=== PATIENT | male | born 1950 | race Caucasian/White ===

== ENCOUNTER 2018-06-16 13:42 | Day surgery (SDC) | payer MEDICARE, OTHER, SELFPAY ==
--- NOTE | 2018-06-16 | PATH_ITS ---
[facility] Accession Number: [id number] . 01 Material submitted: . RECTAL POLYP 10CM . 02 Diagnosis: Rectal Polyp at 10 cm: Tubular adenoma. MRV/06/19/2018 . 02 Electronically signed: . Pedro Foley MD, PhD, Pathologist NPI- [id number] . 01 Gross description: . Received in one formalin-filled container labeled with the patient's name and labeled rectal polyp 10 cm, are two 0.3-0.4 cm portions of tissue, entirely submitted in one cassette. ([id number]) /FRR . 02 Pathologist provided ICD-10: D12.8 . 02 CPT . 911732 Performed at: 01 [facility] [address] [id number] MD Raffy Merchant MD Phone: [phone] Performed at: 02 [facility] [address] [place], [place] [id number] MD Dorothy West MD Phone: [phone]
[2018-06-16 14:05] VITALS: BP 132/77; PULSE 61; RESP 16; TEMP 36.9; O2SAT 100; BMI 23.8
[2018-06-16] MEDS: SODIUM CHLORIDE 0.9% 1,000 ML 200 ML IV (14:16)
[2018-06-16] MEDS: MIDAZOLAM 5 MG/5 ML VIAL IV (14:55)
[2018-06-16] MEDS: fentaNYL 250 MCG/5 ML INJ IV (14:56)
[2018-06-16 15:06] VITALS: BP 114/73; PULSE 42; RESP 24; TEMP 36.2; O2SAT 98
[2018-06-16 15:11] VITALS: BP 109/70; PULSE 43; RESP 23; O2SAT 96
[2018-06-16 15:17] VITALS: BP 117/72; PULSE 57; RESP 13; O2SAT 98
--- NOTE | 2018-06-16 15:26 | SUR.PHASEII ---
Pt tolerating po intake. Spouse notified patient's procedure complete.
[2018-06-16 15:31] VITALS: BP 124/71; PULSE 54; RESP 16; TEMP 36.4; O2SAT 100
--- NOTE | 2018-06-17 07:55 | HP_ITS ---
DATE OF SERVICE: June 16, 2018. HISTORY OF PRESENT ILLNESS: The patient is coming in for a screening colonoscopy. He had a history of polyps 10 years ago and had a repeat scope 5 years ago with no polyps, and he is asymptomatic. No melena. No hematochezia. He is coming in for another colonoscopy. Denies diabetes, heart disease, or hypertension. ALLERGIES: NO KNOWN MEDICAL ALLERGIES. MEDICATIONS: He takes occasional ibuprofen at home. No other medications. REVIEW OF SYSTEMS: Negative for chest pain, unusual shortness of breath. GI is negative, except for the HPI mentioning a history of polyps. is negative. Neurologic: No strokes or seizures. PHYSICAL EXAMINATION VITAL SIGNS: Blood pressure is 120/75, heart rate in the 70s. HEENT: Normal NECK: No adenopathy. LUNGS: Clear. HEART: Regular rhythm. No murmur. ABDOMEN: Soft. No organomegaly. No tenderness. RECTAL: The rectal exam will be done at the time of the colonoscopy. DIAGNOSIS: History of polyps, here for a screening colonoscopy. Gerard Robles - /yunior/ts doc#: [id number]/job#: [id number] dd: 06/16/2018 14:15:00 dt: 06/17/2018 07:46:00 DICTATING /COPIES TO: Anselmo Morgan MD COPIES CHENTEE: MICHELINE
--- NOTE | 2018-06-17 08:31 | OP_ITS ---
DATE OF SERVICE: 06/16/2018 PREOP DIAGNOSIS: History of colonic polyps. POSTOP DIAGNOSIS: A 5-mm rectal polyp at 10 cm from the anal verge. OPERATIONS: 1. Total colonoscopy to the cecum. 2. Removal of a rectal polyp with the cold biopsy forceps. SURGEON: Anselmo Morgan MD DESCRIPTION OF PROCEDURE: The patient was properly identified during surgical pause, given conscious sedation with Versed and fentanyl, a total of 5 of Versed and, I believe, 200 of fentanyl. Flexible fiberoptic colonoscope was inserted transanally to the cecum. The patient had a 5-mm polyp approximately 10 cm from the anal verge. This was removed on extraction of the scope. I examined the entire colon throughout to the cecum, found no evidence of any tumor, polyp, or ulceration anywhere else in the colon. I removed the rectal polyp with the cold forceps, sent tissue for histology. I am sure this is a benign polyp or possibly even a hyperplastic polyp. The procedure was very well tolerated. Gerard Robles - /yunior/damien doc#: [id number]/job#: [id number] dd: 06/16/2018 15:06:00 dt: 06/17/2018 08:24:00 DICTATING MD/COPIES TO: Anselmo Morgan MD COPIES MNE: MICHELINE
== END 2018-06-16 15:37 | disposition home or self-care (01) ==
PROVIDERS: PCP Internal Medicine; Visit Provider Surgery
PROC: 0DJD8ZZ Inspection of Lower Intestinal Tract, Via Natural or Artificial Opening Endoscopic (ICD-10-PCS; CPT 45378; principal; 2018-06-16 14:45)
DX: Z86.010 Personal history of colon polyps (principal); D12.8 Benign neoplasm of rectum
CPT/HCPCS: 45380; 88305; J2250; J3010

== ENCOUNTER → 2019-09-07 10:02 | Outpatient (CLI) | payer MEDICARE, OTHER, SELFPAY ==
[2019-09-07 11:49] LABS: BUN Creatinine Ratio 23.8 (6-22); Blood Urea Nitrogen 19 mg/dL (9-20); Calcium 9.9 mg/dL (8.4-10.2); Carbon Dioxide 29 mmol/L (22-32); Chloride 100 mmol/L (98-107); Cholesterol 223 mg/dL (140-199); Estimated Glomerular Filt Rate > 60.0 mL/min (>60); Glucose 94 mg/dL (80-110); HDL Cholesterol 68 mg/dL (40-60); HEMOLYSIS < 15 (0-50); LDL Cholesterol Calculated 138 mg/dL (<100); Sodium 137 mmol/L (137-145); Triglycerides 86 mg/dL (35-150)
[2019-09-07 11:50] LABS: Potassium 5.4 mmol/L (3.4-5.1)
[2019-09-07 14:05] LABS: Prostate Specific Antigen Scrn 1.02 ng/mL (0.1-4.0)
== END ==
PROVIDERS: PCP Internal Medicine; Referring Provider Internal Medicine; Visit Provider Internal Medicine
DX: Z00.00 Encounter for general adult medical examination without abnormal findings (principal); N40.1 Benign prostatic hyperplasia with lower urinary tract symptoms; M15.0 Primary generalized (osteo)arthritis; S89.92XA Unspecified injury of left lower leg, initial encounter; Z12.5 Encounter for screening for malignant neoplasm of prostate
CPT/HCPCS: 36415; 80048; 80061; G0103

== ENCOUNTER → 2020-11-24 09:52 | Outpatient (CLI) | payer MEDICARE, OTHER, SELFPAY ==
[2020-11-24 11:09] LABS: Alanine Aminotransferase 29 IU/L (<50); Albumin 4.1 g/dL (3.5-5.0); Albumin Globulin Ratio 1.4 (1.0-2.8); Alkaline Phosphatase 43 U/L (38-126); Aspartate Aminotransferase 41 IU/L (17-59); Bilirubin Total 0.2 mg/dL (0.2-1.3); Blood Urea Nitrogen 15 mg/dL (9-20); Calcium 9.5 mg/dL (8.4-10.2); Carbon Dioxide 31 mmol/L (22-32); Chloride 102 mmol/L (98-107); Cholesterol 202 mg/dL (140-199); Estimated Glomerular Filt Rate > 60.0 mL/min (>60); Globulin 2.9 g/dL (1.7-4.1); Glucose 94 mg/dL (80-110); HDL Cholesterol 75 mg/dL (40-60); HEMOLYSIS < 15 (0-50); LDL Cholesterol Calculated 113 mg/dL (<100); Potassium 4.3 mmol/L (3.4-5.1); Sodium 137 mmol/L (137-145); Triglycerides 68 mg/dL (35-150)
[2020-11-24 11:34] LABS: Prostate Specific Antigen Scrn 1.03 ng/mL (0.1-4.0)
== END ==
PROVIDERS: PCP Internal Medicine; Referring Provider Internal Medicine; Visit Provider Internal Medicine
DX: N40.1 Benign prostatic hyperplasia with lower urinary tract symptoms (principal); Z12.5 Encounter for screening for malignant neoplasm of prostate; M15.0 Primary generalized (osteo)arthritis
CPT/HCPCS: 36415; 80053; 80061; G0103

== ENCOUNTER → 2021-09-18 13:13 | Outpatient (CLI) | payer MEDICARE, OTHER, SELFPAY ==
--- NOTE | 2021-09-18 | DI.MRI.S_ITS ---
PROCEDURE: MR SHOULDER LT WO CON INDICATIONS: Pain in left shoulder TECHNIQUE: Noncontrast oblique coronal T2 fast spin echo with fat saturation, oblique sagittal T1 spin echo and T2 fast spin echo with fat saturation, axial T1 spin echo and T2 fast spin echo with fat saturation through the shoulder. COMPARISON: None. FINDINGS: Image quality: Excellent. Rotator cuff: Moderate supraspinatus and infraspinatus tendinopathy with full-thickness tears and retraction of the tendons by approximately 4.5 cm. Mild tendinopathy of the subscapularis tendon. Atrophy of the supraspinatus and infraspinatus muscle. Bones and bursae: Flattening of the humeral head with adjacent T2 hyperintense signal, most consistent with a Hill-Sachs deformity with contusion. Moderate acromioclavicular joint degeneration with T2 hyperintense signal within the articulation. No os acromiale. Subacromial-subdeltoid bursal versus joint fluid is present. Moderate glenohumeral joint fluid. Capsule and soft tissues: The labrum is intact. The long head of the biceps tendon demonstrates normal location. Fluid surrounds the biceps tendon, which may be secondary to the aforementioned rotator cuff tear versus tenosynovitis. The coracohumeral ligament is normal in thickness. IMPRESSION: 1. Moderate supraspinatus and infraspinatus tendinopathy with full-thickness tears and retraction of the tendons. 2. Atrophy of the supraspinatus and infraspinatus muscle. 3. Mild subscapularis tendinopathy. 4. Subacromial-subdeltoid bursal fluid versus joint fluid. 5. Hill-Sachs deformity with adjacent contusion. 6. Moderate glenohumeral joint fluid. 7. At least moderate degeneration of the AC joint. Dictated by: Ryan Balderas M.D. on 09/18/2021 at 15:03 Approved by: Ryan Balderas M.D. on 09/18/2021 at 15:10
== END ==
PROVIDERS: PCP Internal Medicine; Referring Provider Orthopaedic Surgery; Visit Provider Orthopaedic Surgery
DX: M75.122 Complete rotator cuff tear or rupture of left shoulder, not specified as traumatic (principal); M19.012 Primary osteoarthritis, left shoulder; M62.512 Muscle wasting and atrophy, not elsewhere classified, left shoulder; M25.512 Pain in left shoulder
CPT/HCPCS: 73221

== ENCOUNTER → 2022-08-16 15:03 | Outpatient (CLI) | payer MEDICARE, OTHER, SELFPAY ==
--- NOTE | 2022-08-16 | DI.RAD.S_ITS ---
PROCEDURE: XR LUMBAR SPINE 2-3V INDICATIONS: LOW BACK PAIN WITHOUT SCIATICA, UNSPC TECHNIQUE: 3 views of the lumbar spine were acquired. COMPARISON: None. FINDINGS: Bones: 5 rwy-zul-ahyusjh vertebrae are present. There is normal bony alignment. No vertebral body compression fractures. No suspicious bony lesions. Moderate degenerative disc disease at L2-L3 and L3-L4, mild degenerative disc disease at L1-L2 and L4-L5. Moderate facet arthropathy throughout the lumbar spine, most pronounced at L3-L4, L4-L5 and L5-S1. Soft tissues: Overlying bowel gas pattern is normal. No suspicious soft tissue calcifications. IMPRESSION: Moderate degenerative disc and facet disease in lumbar spine. Dictated by: Sonia Velasquez M.D. on 08/16/2022 at 18:59 Approved by: Sonia Velasquez M.D. on 08/16/2022 at 19:00
== END ==
PROVIDERS: PCP Internal Medicine; Referring Provider Physician Assistant; Visit Provider Physician Assistant
DX: M54.50 Low back pain, unspecified (principal); M51.36 Other intervertebral disc degeneration, lumbar region; M47.816 Spondylosis without myelopathy or radiculopathy, lumbar region
CPT/HCPCS: 72100

== ENCOUNTER → 2022-12-16 11:45 | Outpatient (CLI) | payer MEDICARE, OTHER, SELFPAY ==
--- NOTE | 2022-12-16 11:46 | DI.RAD.S_ITS ---
PROCEDURE: XR SHOULDER RT MIN 2V INDICATIONS: right shoulder pain TECHNIQUE: 3 views of the shoulder were acquired. COMPARISON: None. FINDINGS: Bones: No fractures or dislocations. No suspicious bony lesions. Visualized ribs appear intact. Soft tissues: No suspicious soft tissue calcifications. IMPRESSION: Right shoulder radiographs Approved by: Doug Serna M.D. on 12/16/2022 at 17:29
== END ==
PROVIDERS: PCP Family Medicine; Referring Provider Family Medicine; Visit Provider Family Medicine
DX: M25.511 Pain in right shoulder (principal)
CPT/HCPCS: 73030

== ENCOUNTER 2023-04-21 08:29 | Day surgery (SDC) | payer MEDICARE, OTHER, SELFPAY ==
--- NOTE | 2023-04-21 | PATH_ITS ---
[facility] Accession Number: [id number] No. of containers..01 Tissue . 01 Material submitted: . colon - DESCENDING POLYP . 01 Diagnosis: Descending Polyp: Hyperplastic polyp. TXN 04/27/2023 1126 Local . 01 Electronically signed: . Steffany Russell MD, Pathologist NPI- [id number] . 01 Gross description: . DESCENDING POLYP: Received in formalin is 1 fragment(s) of lee, soft tissue measuring 1.0 x 0.6 x 0.2 cm submitted entirely in 1 cassette(s) /AAY 04/22/2023 2258 Local . 01 Pathologist provided ICD-10: K63.5 . 01 CPT . 198228 Specimen Comment: A courtesy copy of this report has been sent to [phone] Performed at: 01 [facility] [address] [place] [id number] MD Raffy Merchant MD Phone: [phone]
[2023-04-21] MEDS: LACTATED RINGERS 1,000 ML 150 ML IV (08:53)
[2023-04-21 09:02] VITALS: BP 136/78; PULSE 54; RESP 16; TEMP 36.4; O2SAT 99; BMI 23.0
--- NOTE | 2023-04-21 09:26 | P.HP_ITS ---
History of Present Illness History of Present Illness Date Patient Seen: 04/21/23 Time Patient Seen: 09:26 Chief complaint: SD Narrative: Gerard is a 73-year-old man who had a colonoscopy by Dr. Morgan in 2018 with removal of a tubular adenoma. He believes he has always had least one polyp removed with all of his prior colonoscopies. He also has a family history of colon in a brother and a father. [facility] Medical History Borderline hyperlipidemia BPH w/o urinary obs/LUTS Family history of colon cancer History of closed shoulder dislocation History of colon polyps History of herniated intervertebral disc Medicare annual wellness visit, subsequent Old lateral collateral ligament disruption Right shoulder pain Well adult on routine health check Surgical History History of repair of right rotator cuff Social History household members: spouse Smoking Status: Never smoker alcohol intake: current Meds Home Medications and Allergies Home Medications Medication Instructions Recorded Confirmed Type artificial tears ointment See Protocol ophthalmic (eye) 3XD 04/21/23 04/21/23 History fluocinonide-emollient 0.05 % 1 applic topical BID-QID PRN 04/21/23 04/21/23 History topical cream Itching peg 400-propylene glycol (PF) 0.4 See Protocol ophthalmic (eye) DAILY 04/21/23 04/21/23 History %-0.3 % eye drops in a dropperette (Systane (PF)) Allergies Allergy/AdvReac Type Severity Reaction Status Date / Time No Known Drug Allergies Allergy Verified 04/21/23 08:52 Exam Vital Signs (past 8 hours): - 04/21/23 09:02 Temperature 97.5 F L Pulse Rate 54 L Respiratory Rate 16 Blood Pressure 136/78 Pulse Oximetry 99 Oxygen Delivery Method Room Air Oxygen Delivery Method Room Air Const General: healthy appearing Resp Effort & Inspection: normal respiratory effort Assessment & Plan Assessment and plan (1) History of colon polyps: Status: Acute Plan Gerard is a 73 year old man with a personal history of colon polyps and a family history of colon cancer. We reviewed the risks and benefits of colonoscopy and he would like to proceed.
--- NOTE | 2023-04-21 10:30 | PM.OP.COLON ---
Operative Date/Time/Diagnoses Date of procedure: 04/21/23 Time of procedure: 10:30 Pre-op diagnosis: Personal history of colon polyps Post-op diagnosis: same Procedure & Clinicians Study performed: Colonoscopy Same procedure as scheduled: Yes Surgeon: Javier العراقي Procedure Notes Procedure in detail: Surgeon: Javier العراقي MD Anesthesia: Rainer Duron DO Procedure: The patient was brought to the endoscopy suite, placed in left lateral decubitus position. The patient was connected to monitoring devices. A time-out was performed. Sedation was administered. Once the patient was adequately sedated, a digital rectal exam was performed and was normal. The scope was then inserted and advanced to the cecum where the appendiceal orifice was identified and photographed. The scope was then slowly withdrawn over greater than 6 minutes. The mucosa was thoroughly inspected. There was a 4 mm polyp in the proximal descending colon removed with a cold snare. The scope was retroflexed in the rectum. No further abnormalities were seen The scope was straightened and removed. The patient was awakened and brought to recovery. Scope withdrawal time: 10 minutes Sedation time: 20 minutes EBL: 2 mL Findings: Small polyp in the descending colon Post-procedure Disposition: PACU
[2023-04-21 10:33] VITALS: BP 104/53; PULSE 56; RESP 11; TEMP 36.9; O2SAT 100
[2023-04-21 10:37] VITALS: BP 106/60; PULSE 53; RESP 15; O2SAT 96
[2023-04-21 10:43] VITALS: BP 111/61; PULSE 53; RESP 16; O2SAT 100
[2023-04-21 10:52] VITALS: BP 118/64; PULSE 50; RESP 14; TEMP 36.7; O2SAT 98
== END 2023-04-21 10:57 | disposition home or self-care (01) ==
PROVIDERS: PCP Family Medicine; Referring Provider Surgery; Visit Provider Surgery
PROC: 0DJD8ZZ Inspection of Lower Intestinal Tract, Via Natural or Artificial Opening Endoscopic (ICD-10-PCS; CPT 45378; principal; 2023-04-21 09:45)
DX: Z12.11 Encounter for screening for malignant neoplasm of colon (principal); Z86.010 Personal history of colon polyps; K63.5 Polyp of colon
CPT/HCPCS: 45385; J2704

== ENCOUNTER → 2023-08-22 08:51 | Outpatient (CLI) | payer MEDICARE, OTHER, SELFPAY ==
[2023-08-22 09:56] LABS: Add Manual Diff / Slide Review NO; Basophils Absolute Auto 0 /uL (0-100); Basophils Percent Auto 0.6 % (0-2); Eosinophils Absolute Auto 200 /uL (0-450); Eosinophils Percent Auto 3.9 % (2-4); Hematocrit 38.4 % (41-53); Hemoglobin 13.2 g/dL (13.5-17.5); Lymphocytes Absolute Auto 2100 /uL (1100-4500); Lymphocytes Percent Auto 39.9 % (25-40); Mean Corpuscular HGB Conc 34.3 % (30-36); Mean Corpuscular Volume 90.6 fL (80-100); Monocytes Absolute Auto 500 /uL (0-900); Monocytes Percent Auto 10.4 % (3-14); Neutrophils Absolute Auto 2300 /uL (1500-7000); Neutrophils Percent Auto 45.2 % (50-75); Platelet Count 207 X10^3/uL (150-400); Red Blood Cell Count 4.24 X10^6/uL (4.5-5.9); Red Cell Distribution Width 12.8 % (11.6-14.8); White Blood Cell Count 5.2 X10^3/uL (4.5-11.0)
[2023-08-22 10:11] LABS: Alanine Aminotransferase 37 IU/L (<50); Albumin 3.9 g/dL (3.5-5.0); Albumin Globulin Ratio 1.4 (1.0-2.8); Alkaline Phosphatase 40 U/L (38-126); Aspartate Aminotransferase 38 IU/L (17-59); BUN Creatinine Ratio 18.4 (6-22); Bilirubin Total 0.5 mg/dL (0.2-1.3); Blood Urea Nitrogen 16 mg/dL (9-20); Calcium 9.4 mg/dL (8.4-10.2); Carbon Dioxide 28 mmol/L (22-32); Chloride 101 mmol/L (98-107); Cholesterol 192 mg/dL (140-199); Estimated Glomerular Filt Rate > 60 mL/min (>60); Globulin 2.8 g/dL (1.7-4.1); Glucose 90 mg/dL (80-110); HDL Cholesterol 77 mg/dL (40-60); HEMOLYSIS < 15 (0-50); LDL Cholesterol Calculated 100 mg/dL (<100); Potassium 4.5 mmol/L (3.4-5.1); Sodium 134 mmol/L (137-145); Total Protein 6.7 g/dL (6.3-8.2); Triglycerides 77 mg/dL (35-150)
[2023-08-22 10:42] LABS: Prostate Specific Antigen Scrn 1.14 ng/mL (0.1-4.0)
== END ==
PROVIDERS: PCP Family Medicine; Referring Provider Family Medicine; Visit Provider Family Medicine
DX: Z12.5 Encounter for screening for malignant neoplasm of prostate (principal); E78.5 Hyperlipidemia, unspecified; N40.0 Benign prostatic hyperplasia without lower urinary tract symptoms; Z86.010 Personal history of colon polyps
CPT/HCPCS: 36415; 80053; 80061; 85025; G0103

== ENCOUNTER → 2023-11-10 16:06 | Outpatient (CLI) | payer MEDICARE, OTHER, SELFPAY | PROVIDERS: PCP Family Medicine; Visit Provider Nurse Practitioner Family | DX: J02.9 Acute pharyngitis, unspecified (principal) | CPT/HCPCS: 87070 ==

== ENCOUNTER 2025-06-18 08:37 | Day surgery (SDC) | payer MEDICARE, OTHER, SELFPAY ==
[2025-06-11 07:20] VITALS: BMI 23.8
[2025-06-11 07:22] VITALS: BMI 23.7
[2025-06-18] VITALS (9 sets, daily range): BP systolic 118–146; BP diastolic 64–74; PULSE 48–67; RESP 14–20; TEMP 36.2–36.5; O2SAT 96–100
[2025-06-18] MEDS: ACETAMINOPHEN 325 MG TABLET 975 MG PO (09:08)
[2025-06-18] MEDS: LACTATED RINGERS 1,000 ML 21 ML IV (09:09)
--- NOTE | 2025-06-18 10:05 | PM.PREOP ---
Pre-operative Note COVID-19 COVID-19 status: Not tested Interval Note History & Physical reviewed/Exam performed by Physician: Yes Changes to H&P: Yes H&P completed within 30 days and has changed as indicated here:: After careful consideration, he has decided to move forward with an Aquablation procedure. Discussed the risks, benefits and alternatives in great detail. His informed consent was obtained today.
--- NOTE | 2025-06-18 11:00 | SUR.OPER ---
Lithotomy on padded OR bed, head on pillow, arms secured on padded arm boards at <90 degrees abduction. Legs secured in padded yellow fins stirrups.
--- NOTE | 2025-06-18 11:52 | P.OP_ITS ---
Operative Date/Time/Diagnoses Date of procedure: 06/18/25 Time of procedure: 10:45 Pre-op diagnosis: Benign prostatic hyperplasia with lower urinary tract symptoms Post-op diagnosis: same Procedure & Clinicians Procedure: Cystoscopy Aquablation Same procedure(s) as scheduled: Yes Indications: 75 y/o M noted to have symptoms consistent with BPH and LUTS that are currently managed w/ observation. Discussed treatment options to include observation vs a trial of alpha blockers. Discussed mechanism of action and expected side effects to include orthostatic hypotension, nasal congestion and retrograde ejaculation. Also discussed the possible addition of Finasteride 5mg daily (discussed possible side effects to include decreased libido, worsening erectile dysfunction, loss of ejaculate volume as well as painful breast development or nipple tenderness), or a lower urinary tract evaluation prior to a bladder outlet procedure. Discussed absolute indications for treatment either medically or surgically to include: urinary retention, development of large bladder stones, refractory gross hematuria, recurrent urinary tract infections and renal dysfunction. Reviewed that at this time, he does not have any absolute indications for treatment. At this time, he admits that he is not a medication person and preferred a bladder outlet procedure evaluation. His cystoscopy and TRUS prostate were notable for coaptating lateral prostatic lobes w/ a small intravesical median lobe and a TRUS volume of 45g. After careful consideration of his treatment options, he elected to move forward with an Aquablation procedure. Surgeon: Dylan Greer Assisted?: No Anesthesia Type: General Operative Notes Findings: Coaptating lateral prostatic lobes, no intravesical median lobe Closure Type: not applicable Specimen(s): other (prostate chips) Applied: catheter Estimated Blood Loss (mL): 25 Blood products transfused: none Procedure in detail: After informed consent was obtained, the patient was identified brought to the operating room where he was placed in his supine position on the table.? Once there anesthesia was induced and maintained.? Ensuring an adequate level of anesthesia the patient was transitioned to the lithotomy position where after time-out he was prepped.? After prepping, ensuring an adequate level of anesthesia, administration IV antibiotics and time-out 60 cc of ultrasound gel was instilled within the rectum and the ultrasound probe which had been attached to the TRUS stepper which was attached to the TRUS stepper articulating arm which was secured to the bed was advanced into the rectum under direct vision via the ultrasound.? The ultrasound probe was then aligned and confirmation made that the prostate was centered and aligned in both the sagittal and transverse views.? The bladder neck, verumontanum, central and transitional zones were identified.? With the ultrasound in place and adjusted the patient was then draped in a sterile fashion. With the patient draped the 24 Qatari aqua beam handpiece was then inserted through the urethra and advanced into the bladder.? Cystoscopy was then performed and no concerning bladder mass or lesions were noted.? Bilateral ureteral orifices were noted to be orthotopic in nature.? As the cystoscope was advanced the level of the sphincter, verumontanum, bladder neck were all identified via ultrasound and under direct vision.? The aqua beam hand place was then secured to the handpiece articulating arm which had been secured to the bed.? The Aquablation handpiece and TRUS probe were confirmed to be parallel and colinear.? Confirmation was then made that the aqua beam handpiece and nozzle was centered and anterior to the bladder neck.? The cystoscope was then retracted under direct vision in the sphincter and verumontanum were identified.? The tip of the cystoscope was then placed proximal to the external sphincter.? Compression was applied with the TRUS probe to the prostate.? The alignment of the TRUS probe and aqua beam handpiece was once again confirmed.? Horizontal alignment of the handpiece water jet was then performed.? With these adjustments made, the treatment zones were then planned using real-time ultrasound.? In the largest transverse view of the prostate the depth and radial angles were determined and set again in the transverse view of the prostate.? In the longitudinal and sagittal view the Aquablation nozzle was identified and its position registered with the software and robot.? The treatment contours were then determined and adjusted to reflect the intended margins of resection.? Following our plan confirmation, the Aquablation resection treatment was started.? A 2nd pass was then completed in similar fashion after the 1st pass had been completed.? At this point, the Aqua hand piece was removed from the urethra. The 26Fr resectoscope was then inserted into the urethra and cystoscopy was repeated.? The Elik scientific writer was utilized to evacuate the blood clots from the bladder.? The bladder neck was then resected using the bipolar Gyrus loop.? Bilateral ureteral orifices were again identified and noted to be intact at case end.? Hemostasis was obtained and noted to be excellent at case end.? The resectoscope was then removed and a 24Fr Eduard 3-way hematuria catheter was inserted through the urethra and into the bladder.? 45cc of sterile water was utilized for balloon insufflation.? Efflux was noted to be clear at case end.? Anesthesia was reversed, he was extubated in the OR and transferred to the PACU in stable condition for recovery. Complications: none Post-operative Condition: stable Disposition: PACU Plan for aftercare: Will continue to run CBI for a few hours to evaluate the efflux from his catheter.? Should it remain relatively clear and with minimal blood clots, will discharge home with catheter in place and have him return to Urology clinic in 2 days for a voiding trial.? Should his efflux remain red or have significant clot burden, will admit overnight for observation and continued CBI.
--- NOTE | 2025-06-18 12:41 | SUR.PHASEII ---
Patient with no complaints at this time. Tolerating PO liquids without difficulty.
[2025-06-18] MEDS: PHENAZOPYRIDINE 100 MG TABLET 200 MG PO (15:33)
== END 2025-06-18 16:36 | disposition home or self-care (01) ==
PROVIDERS: PCP Family Medicine; Referring Provider Urology; Visit Provider Urology
PROC: 0VT08ZZ Resection of Prostate, Via Natural or Artificial Opening Endoscopic (ICD-10-PCS; CPT 0421T; principal; 2025-06-18 10:15)
DX: N40.1 Benign prostatic hyperplasia with lower urinary tract symptoms (principal); R35.1 Nocturia; R39.198 Other difficulties with micturition
CPT/HCPCS: 0421T; C2596; J0689; J1100; J2405; J2704; J3010; J7120

== ENCOUNTER → 2025-06-20 15:00 | Outpatient (CLI) | payer MEDICARE, OTHER, SELFPAY | PROVIDERS: PCP Family Medicine; Visit Provider Urology | DX: R39.9 Unspecified symptoms and signs involving the genitourinary system (principal) | CPT/HCPCS: 87086 ==